=== PATIENT | female | born 1985 | race Caucasian/White ===

== ENCOUNTER → 2022-04-12 | Outpatient (CLI) | payer OTHER ==
[~2022-04-12] MED LIST: ANUS2.5C2 TOP; B12 PO; CALCIUM CITRATE PO; CIPR500T89 PO; DOCU10CA PO; DOCU5LIQ PO; FERR325T OR; IBUP80TA PO; LANOLIN CREAM TOP; MAPA500T17 PO; MAPA500T2 PO; MOM30SS PO; MULTIVIT PO; OXYC1TAB23 PO; PNV-CAP5 PO; PRENTAB74 PO; PRIL40CA OR; VITAPRTA PO; [UNRECOGNIZED DRUG - OTHER] IV
== END ==
LOC: M OUTALCOH 07:53
PROVIDERS: ATTEND Psychiatry & Neurology Psychiatry
DX: F10.10 Alcohol abuse, uncomplicated (principal)

== ENCOUNTER 2022-05-03 08:40 | Outpatient (RCR) | payer OTHER | END 2022-05-04 | LOC: M OUTALCOH 08:40 | PROVIDERS: ATTEND Psychiatry & Neurology Psychiatry | DX: F10.20 Alcohol dependence, uncomplicated (principal); Z72.0 Tobacco use ==

== ENCOUNTER → 2023-11-10 | Outpatient (CLI) | payer OTHER | LOC: M OUTALCOH 12:26 | PROVIDERS: ATTEND Psychiatry & Neurology Psychiatry | DX: F10.20 Alcohol dependence, uncomplicated (principal) ==

== ENCOUNTER 2024-11-24 16:51 | Emergency (ER) | payer OTHER ==
[~2024-11-24] VITALS: Ht 167.6 cm; Wt 82.4 kg
[~2024-11-24 16:51] MED LIST changes: +CLON-412 PO; +FOLI1TAB11 PO; +HYDR50TA70 PO; +INVE234I INJ; +LORA1TAB23 PO; +ONDA-83 PO; +OXAZ10CA3 PO; +THIA100T7 PO; +THIA100TA PO; +TRAZ-257 PO; +VITMTA PO
[2024-11-24 17:01] VITALS: BP 139/84; TEMP 98.8; O2SAT 98
== END 2024-11-24 18:09 | disposition left against medical advice (07) ==
LOC: M ED 16:51
DX: Z53.21 Procedure and treatment not carried out due to patient leaving prior to being seen by health care provider (principal)

== ENCOUNTER 2024-12-02 11:20 | Inpatient (IN) | payer OTHER ==
[~2024-12-02] VITALS: Ht 167.6 cm; Wt 79.8 kg
[2024-12-02 12:28] LABS: PLATELET COUNT, AUTOMATED 299 10^3/uL (150-450)
[2024-12-02 12:48] LABS: BARBITURATES URINE NEGATIVE (NEGATIVE); CANNABINOIDS URINE NEGATIVE (NEGATIVE); METHADONE URINE NEGATIVE (NEGATIVE); OPIATES URINE NEGATIVE (NEGATIVE); PHENCYCLIDINE URINE NEGATIVE (NEGATIVE)
[2024-12-02 12:52] LABS: AMPHETAMINES LEVEL URINE POSITIVE (NEGATIVE); BENZODIAZEPINES URINE POSITIVE (NEGATIVE); COCAINE METABOLITE URINE POSITIVE (NEGATIVE); SALICYLATE LEVEL < 3.0 MG/DL (<30)
[2024-12-02 12:56] LABS: ETHYL ALCOHOL (ETHANOL) 0.162 % (0.000-0.010)
[2024-12-02 13:09] LABS: ALT/SGPT 69 U/L (7.0-40); AST/SGOT 66 U/L (<34); CALCIUM LEVEL 9.2 MG/DL (8.5-10.1); CARBON DIOXIDE LEVEL 22 MMOL/L (20-31); CHLORIDE LEVEL 101 MMOL/L (98-107); CREATININE FOR GFR 0.67 MG/DL (0.55-1.30); GLOMERULAR FILTRATION RATE > 90.0 (>60); POTASSIUM SERUM 3.8 MMOL/L (3.5-5.1); SODIUM LEVEL 136 MMOL/L (136-145)
[2024-12-02 13:12] LABS: HCG, SERUM QUALITATIVE NEGATIVE (NEGATIVE)
[2024-12-02] MEDS ORDERED: HOME MED LIST COMPLETE! XX SCH (15:45)
[2024-12-03] MEDS ORDERED: MAALOX 30 ML SUSP *UDC PO PRN (09:15)
[2024-12-03] MEDS ORDERED: MOM 30 ML SUSPENSION UDC PO PRN (09:15)
[2024-12-03] MEDS ORDERED: ACETAMINOPHEN 325 MG TAB PO PRN (09:15)
[2024-12-03] MEDS: LORazepam 1 MG TAB PO PRN (10:20)
[2024-12-03] MEDS: NICOTINE 14 MG/24 HR TRANSDERMAL TD SCH (10:20)
[2024-12-03 12:25] VITALS: BP 108/65; TEMP 97.6; O2SAT 99
[2024-12-03] MEDS: HALOPERIDOL 5 MG TAB PO PRN (16:06)
[2024-12-03] MEDS: traZODone 50 MG TAB PO PRN (23:02)
[2024-12-04 06:35] VITALS: BP 109/64; TEMP 97; O2SAT 98
[2024-12-04] MEDS ORDERED: LORazepam 1 MG TAB PO ONE (09:50)
[2024-12-04 15:12] VITALS: BP 122/67; TEMP 97.9; O2SAT 100
[2024-12-04 17:24] LABS: GC DNA AMPLIFICATION NEGATIVE (NEGATIVE)
[2024-12-04] MEDS: CETIRIZINE 10 MG TAB PO ONE (18:36)
[2024-12-04] MEDS: PALIPERIDONE 3MG ER TAB PO SCH (20:02)
[2024-12-04] MEDS: MONTELUKAST 10 MG TAB PO SCH (20:03)
[2024-12-04] MEDS: FLUTICASONE PROPIONATE 0.05% NASAL SPRAY 16 GM NARES SCH (20:03)
[2024-12-04] MEDS: guaiFENesin ER TABLET 600 MG TAB PO SCH (20:03)
[2024-12-05 06:21] VITALS: BP 121/66; TEMP 97.3; O2SAT 98
[2024-12-05] MEDS: CETIRIZINE 10 MG TAB PO SCH (09:48)
[2024-12-05] MEDS: OLANZapine 5 MG TAB PO PRN (14:16)
[2024-12-05 16:26] VITALS: BP 110/64; TEMP 98.4; O2SAT 98
[2024-12-05] MEDS: traZODone 100 MG TAB PO PRN (20:11)
[2024-12-05] MEDS: PALIPERIDONE 6MG ER TAB PO SCH (20:12)
[2024-12-06 06:22] VITALS: BP 113/57; TEMP 97.6; O2SAT 100
[2024-12-06 15:34] VITALS: BP 133/70; TEMP 98; O2SAT 96
[2024-12-06] MEDS ORDERED: INVE234I IM (15:42)
[2024-12-06] MEDS ORDERED: FLUTISP NARES (15:42)
[2024-12-06] MEDS ORDERED: CETI10TA PO (15:42)
[2024-12-06] MEDS ORDERED: MUCI600T31 PO (15:42)
[2024-12-06] MEDS ORDERED: MONT10TA97 PO (15:42)
[2024-12-06] MEDS ORDERED: CLONI1TA PO (15:42)
[2024-12-06] MEDS ORDERED: TRAZ-257 PO (15:42)
[2024-12-06] MEDS ORDERED: PALI1TAB3 PO (15:42)
[2024-12-07 06:41] VITALS: BP 116/56; TEMP 97.6; O2SAT 98
[2024-12-07] MEDS: PALIPERIDONE PAL 234MG/1.5ML INJ (FREE PSY INPT ONLY) IM ONE (07:25)
[2024-12-07 08:32] VITALS: BP 119/60
== END 2024-12-07 10:06 | disposition home or self-care (01) | DRG 750 ==
LOC: M ED 11:20 → M ED INP 12-03 09:13 → M PSY 12-03 12:24
PROVIDERS: ADMIT Internal Medicine; ATTEND Internal Medicine
DX: F20.9 Schizophrenia, unspecified (principal); T76.11XA Adult physical abuse, suspected, initial encounter; F17.200 Nicotine dependence, unspecified, uncomplicated; F15.90 Other stimulant use, unspecified, uncomplicated; F14.90 Cocaine use, unspecified, uncomplicated; F11.90 Opioid use, unspecified, uncomplicated; S00.83XA Contusion of other part of head, initial encounter; Z88.6 Allergy status to analgesic agent; Z88.8 Allergy status to other drugs, medicaments and biological substances; Z81.8 Family history of other mental and behavioral disorders; Z81.1 Family history of alcohol abuse and dependence; Z56.0 Unemployment, unspecified; G47.00 Insomnia, unspecified; Y04.2XXA Assault by strike against or bumped into by another person, initial encounter; Z90.5 Acquired absence of kidney; Z98.84 Bariatric surgery status; Z90.49 Acquired absence of other specified parts of digestive tract

== ENCOUNTER 2025-01-05 22:56 | Inpatient (IN) | payer MEDICAID, OTHER ==
[~2025-01-05] VITALS: Ht 167.6 cm; Wt 79.7 kg
[~2025-01-05 22:56] MED LIST changes: +CETI10TA PO; +CLONI1TA PO; +FLUTISP NARES; +INVE234I IM; +MONT10TA97 PO; +MUCI600T31 PO; +PALI1TAB3 PO
[2025-01-05 23:37] LABS: BASO # 0.1 10^3/uL (0.0-0.2); BASO % 0.8 % (0.0-1.0); EOS # 0.3 10^3/uL (0.0-0.5); EOS % 3.7 % (0.0-3.0); LYMPH # 3.2 10^3/uL (1.5-5.0); LYMPH % 36.9 % (24.0-44.0); MONO # 0.6 10^3/uL (0.0-0.8); MONO % 7.4 % (2.0-8.0); NEUTROPHILS # 4.4 10^3/uL (1.5-8.5); NEUTROPHILS % 51.0 % (36.0-66.0); PLATELET COUNT, AUTOMATED 337 10^3/uL (150-450)
[2025-01-05 23:54] LABS: BARBITURATES URINE NEGATIVE (NEGATIVE); BENZODIAZEPINES URINE NEGATIVE (NEGATIVE); COCAINE METABOLITE URINE NEGATIVE (NEGATIVE); METHADONE URINE NEGATIVE (NEGATIVE); OPIATES URINE NEGATIVE (NEGATIVE); PHENCYCLIDINE URINE NEGATIVE (NEGATIVE)
[2025-01-05 23:55] LABS: CANNABINOIDS URINE NEGATIVE (NEGATIVE)
[2025-01-05 23:56] LABS: AMPHETAMINES LEVEL URINE POSITIVE (NEGATIVE)
[2025-01-05 23:58] LABS: CPK CREATINE PHOSPHOKINASE 116 U/L (34-145)
[2025-01-05 23:59] LABS: ALT/SGPT 39 U/L (7.0-40); AST/SGOT 26 U/L (<34); CALCIUM LEVEL 8.6 MG/DL (8.5-10.1); CARBON DIOXIDE LEVEL 22 MMOL/L (20-31); CHLORIDE LEVEL 110 MMOL/L (98-107); CREATININE FOR GFR 0.61 MG/DL (0.55-1.30); GLOMERULAR FILTRATION RATE > 90.0 (>60); POTASSIUM SERUM 4.2 MMOL/L (3.5-5.1); SALICYLATE LEVEL < 3.0 MG/DL (<30); SODIUM LEVEL 145 MMOL/L (136-145)
[2025-01-06 00:03] LABS: HCG, SERUM QUALITATIVE NEGATIVE (NEGATIVE)
[2025-01-06 00:38] LABS: ETHYL ALCOHOL (ETHANOL) 0.297 % (0.000-0.010)
[2025-01-06] MEDS: THIAMINE 100 MG TAB PO SCH (00:42)
[2025-01-06] MEDS: ONDANSETRON 4MG ORAL DISINTEGRATING TAB PO ONE (08:40)
[2025-01-06] MEDS: FOLIC ACID 1 MG TAB PO SCH (09:25)
[2025-01-06] MEDS: MULTIVITAMINS/MINERALS THERAP 1 TAB PO SCH (09:25)
[2025-01-06] MEDS ORDERED: GABA-1172 (09:29)
[2025-01-06] MEDS ORDERED: FLUT15.820 (10:26)
[2025-01-06] MEDS ORDERED: CETI-24 PO (10:26)
[2025-01-06] MEDS ORDERED: TRAZ1TAB12 PO (10:26)
[2025-01-06] MEDS ORDERED: MONT10TA97 PO (10:26)
[2025-01-06] MEDS ORDERED: INVE234I IM (10:26)
[2025-01-06] MEDS ORDERED: HOME MED LIST COMPLETE! XX SCH (10:30)
[2025-01-06 15:41] LABS: KETONE, URINE AUTO RFX NEGATIVE (NEGATIVE); MUCUS, URINE RFX SMALL (NEGATIVE); NITRITE, URINE AUTO RFX NEGATIVE (NEGATIVE); RBC, URINE AUTO RFX TNTC /HPF (0-3); SQUAM EPITHELIAL CELL UR AURFX 50 /HPF (0-6)
[2025-01-06 15:42] LABS: LEUKOCYTE ESTERASE UR AUTO RFX 2+ (NEGATIVE); WBC, URINE AUTO RFX TNTC /HPF (0-3)
[2025-01-06] MEDS ORDERED: NITROFURANTOIN 100 MG CAP PO ONE (16:20)
[2025-01-06] MEDS ORDERED: NITROFURANTOIN 100 MG CAP PO SCH (16:25)
[2025-01-06] MEDS: NITROFURANTOIN 100 MG CAP PO SCH (16:51)
[2025-01-06] MEDS ORDERED: MOM 30 ML SUSPENSION UDC PO PRN (19:55)
[2025-01-06] MEDS ORDERED: CETIRIZINE 10 MG TAB PO PRN (19:55)
[2025-01-06] MEDS ORDERED: ACETAMINOPHEN 325 MG TAB PO PRN (19:55)
[2025-01-06] MEDS ORDERED: MAALOX 30 ML SUSP *UDC PO PRN (19:55)
[2025-01-06] MEDS: OLANZapine 5 MG TAB PO PRN (21:39)
[2025-01-06] MEDS: MONTELUKAST 10 MG TAB PO SCH (21:39)
[2025-01-06] MEDS: traZODone 100 MG TAB PO PRN (21:39)
[2025-01-06 22:00] VITALS: BP 113/59; TEMP 97; O2SAT 97
[2025-01-07 06:00] VITALS: BP_SYST 112; BP_DIAS 70; BP_DIAS 75; TEMP 97.2
[2025-01-07] MEDS: THIAMINE 100 MG TAB PO SCH (11:22)
[2025-01-07] MEDS: FOLIC ACID 1 MG TAB PO SCH (11:22)
[2025-01-07] MEDS: MULTIVITAMINS/MINERALS THERAP 1 TAB PO SCH (11:22)
[2025-01-07] MEDS: NITROFURANTOIN 100 MG CAP PO SCH (13:59)
[2025-01-07 14:55] VITALS: BP 130/74
[2025-01-07 15:24] VITALS: BP 130/74; TEMP 97.7; O2SAT 98
[2025-01-07] MEDS: PALIPERIDONE 6MG ER TAB PO SCH (21:09)
[2025-01-07 22:00] VITALS: BP 123/72
[2025-01-08 09:25] VITALS: BP 115/82
[2025-01-08 14:54] VITALS: BP 106/56
[2025-01-08] MEDS: NICOTINE POLACRILEX 2 MG GUM PO PRN (17:55)
[2025-01-08 18:43] VITALS: BP 126/68; TEMP 98.6; O2SAT 98
[2025-01-08 21:00] VITALS: BP 120/70
[2025-01-09 06:27] VITALS: BP 97/56; TEMP 97.3; O2SAT 100
[2025-01-09] MEDS ORDERED: CLON-412 PO (08:33)
[2025-01-09] MEDS ORDERED: BENA25CA4 PO (08:33)
[2025-01-09] MEDS ORDERED: PALI1TAB3 PO (08:33)
[2025-01-09] MEDS ORDERED: QUET1TAB17 PO (08:33)
[2025-01-09] MEDS ORDERED: TRAZ-257 PO (08:33)
[2025-01-09 09:35] VITALS: BP 117/74
== END 2025-01-09 10:29 | disposition home or self-care (01) | DRG 750 ==
LOC: M ED 22:56 → M ED INP 01-06 19:55 → M PSY 01-06 21:08
PROVIDERS: ADMIT Psychiatry & Neurology Neurology; ATTEND Psychiatry & Neurology Neurology
DX: F25.0 Schizoaffective disorder, bipolar type (principal); Z91.148 Patient's other noncompliance with medication regimen for other reason; R45.851 Suicidal ideations; F10.10 Alcohol abuse, uncomplicated; F15.90 Other stimulant use, unspecified, uncomplicated; F41.9 Anxiety disorder, unspecified; Z88.8 Allergy status to other drugs, medicaments and biological substances; Z88.6 Allergy status to analgesic agent; Z79.899 Other long term (current) drug therapy

== ENCOUNTER 2025-02-09 18:15 | Inpatient (IN) | payer MEDICAID, OTHER ==
[~2025-02-09] VITALS: Ht 167.6 cm; Wt 76.6 kg
[~2025-02-09 18:15] MED LIST changes: +BENA25CA4 PO; +CETI-24 PO; +FLUT15.820; +GABA-1172; +QUET1TAB17 PO; +TRAZ1TAB12 PO
[2025-02-09 19:25] LABS: PLATELET COUNT, AUTOMATED 389 10^3/uL (150-450)
[2025-02-09 19:49] LABS: BARBITURATES URINE NEGATIVE (NEGATIVE); BENZODIAZEPINES URINE NEGATIVE (NEGATIVE); CANNABINOIDS URINE NEGATIVE (NEGATIVE); COCAINE METABOLITE URINE NEGATIVE (NEGATIVE); METHADONE URINE NEGATIVE (NEGATIVE); OPIATES URINE NEGATIVE (NEGATIVE); PHENCYCLIDINE URINE NEGATIVE (NEGATIVE)
[2025-02-09 19:50] LABS: AMPHETAMINES LEVEL URINE POSITIVE (NEGATIVE)
[2025-02-09 19:51] LABS: ETHYL ALCOHOL (ETHANOL) 0.214 % (0.000-0.010)
[2025-02-09 19:52] LABS: SALICYLATE LEVEL < 3.0 MG/DL (<30)
[2025-02-09 19:53] LABS: ALT/SGPT 20 U/L (7.0-40); AST/SGOT 15 U/L (<34); CALCIUM LEVEL 9.0 MG/DL (8.5-10.1); CARBON DIOXIDE LEVEL 21 MMOL/L (20-31); CHLORIDE LEVEL 113 MMOL/L (98-107); CREATININE FOR GFR 0.80 MG/DL (0.55-1.30); GLOMERULAR FILTRATION RATE > 90.0 (>60); POTASSIUM SERUM 3.3 MMOL/L (3.5-5.1); SODIUM LEVEL 148 MMOL/L (136-145)
[2025-02-09] MEDS: OLANZapine ORAL DISINTEGRATING TAB 5MG PO ONE (19:55)
[2025-02-09] MEDS: POTASSIUM CHLORIDE 10MEQ SR TABLET PO ONE (22:50)
[2025-02-09] MEDS ORDERED: ACETAMINOPHEN 325 MG TAB PO PRN (22:55)
[2025-02-09] MEDS ORDERED: MOM 30 ML SUSPENSION UDC PO PRN (22:55)
[2025-02-09] MEDS ORDERED: MAALOX 30 ML SUSP *UDC PO PRN (22:55)
[2025-02-09 23:52] VITALS: BP 128/81; TEMP 97.6; O2SAT 96
[2025-02-10] MEDS ORDERED: QUET1TAB17 PO (00:33)
[2025-02-10] MEDS ORDERED: PALI1TAB3 PO (00:33)
[2025-02-10] MEDS ORDERED: CLONI1TA PO (00:33)
[2025-02-10] MEDS ORDERED: TRAZ-257 PO (00:33)
[2025-02-10] MEDS ORDERED: HOME MED LIST COMPLETE! XX SCH (00:35)
[2025-02-10 06:21] VITALS: BP 116/63; TEMP 96.8; O2SAT 100
[2025-02-10 08:26] VITALS: BP 116/63
[2025-02-10] MEDS: THIAMINE 100 MG TAB PO SCH (08:31)
[2025-02-10] MEDS: MULTIVITAMINS/MINERALS THERAP 1 TAB PO SCH (08:32)
[2025-02-10] MEDS: FOLIC ACID 1 MG TAB PO SCH (08:32)
[2025-02-10 10:30] VITALS: BP 126/72
[2025-02-10] MEDS: HALOPERIDOL 5 MG TAB PO PRN (12:42)
[2025-02-10 13:25] VITALS: BP 138/92
[2025-02-10] MEDS: LORazepam 1 MG TAB PO PRN (13:37)
[2025-02-10] MEDS: PALIPERIDONE PAL 234MG/1.5ML INJ (FREE PSY INPT ONLY) IM ONE (14:02)
[2025-02-10] MEDS: traZODone 50 MG TAB PO PRN (20:33)
[2025-02-10 20:35] VITALS: BP 136/78
[2025-02-11 06:00] VITALS: BP 116/71
[2025-02-11 06:49] VITALS: BP 116/62; TEMP 96.8; O2SAT 97
[2025-02-11 06:58] VITALS: BP 116/62
[2025-02-11 11:18] VITALS: BP 119/71
[2025-02-11 14:58] VITALS: BP 135/83
[2025-02-11 16:06] VITALS: BP 135/83; TEMP 97.3; O2SAT 98
[2025-02-11] MEDS: OLANZapine ORAL DISINTEGRATING TAB 5MG PO PRN (17:53)
[2025-02-11 18:22] LABS: BASO # 0.1 10^3/uL (0.0-0.2); BASO % 0.6 % (0.0-1.0); EOS # 0.2 10^3/uL (0.0-0.5); EOS % 2.2 % (0.0-3.0); LYMPH # 2.3 10^3/uL (1.5-5.0); LYMPH % 21.0 % (24.0-44.0); MONO # 0.6 10^3/uL (0.0-0.8); MONO % 5.9 % (2.0-8.0); NEUTROPHILS # 7.6 10^3/uL (1.5-8.5); NEUTROPHILS % 69.9 % (36.0-66.0); PLATELET COUNT, AUTOMATED 420 10^3/uL (150-450)
[2025-02-11 18:51] LABS: CALCIUM LEVEL 8.5 MG/DL (8.5-10.1); CARBON DIOXIDE LEVEL 22 MMOL/L (20-31); CHLORIDE LEVEL 106 MMOL/L (98-107); CREATININE FOR GFR 0.64 MG/DL (0.55-1.30); FREE T4 1.16 NG/DL (0.89-1.76); GLOMERULAR FILTRATION RATE > 90.0 (>60); MAGNESIUM LEVEL 1.8 MG/DL (1.8-2.4); POTASSIUM SERUM 4.6 MMOL/L (3.5-5.1); SODIUM LEVEL 139 MMOL/L (136-145)
[2025-02-12 06:19] VITALS: BP 109/74
[2025-02-12 06:21] VITALS: BP_SYST 109; BP_SYST 134; BP_DIAS 69; BP_DIAS 74; TEMP 97.4; TEMP 98.1; O2SAT 97; O2SAT 98
[2025-02-12 14:05] VITALS: BP 131/88; TEMP 97.4; O2SAT 100
[2025-02-12 15:02] VITALS: BP 131/79
[2025-02-12 16:31] VITALS: BP 131/79
[2025-02-12 22:08] VITALS: BP 114/65
[2025-02-13 06:33] VITALS: BP 112/69; TEMP 97.3; O2SAT 96
[2025-02-13] MEDS ORDERED: TRAZ-252 PO (09:33)
[2025-02-13] MEDS ORDERED: OLAN5ZYD PO (09:33)
[2025-02-13] MEDS ORDERED: OLANZapine 5 MG TAB PO SCH (21:00)
== END 2025-02-13 10:18 | disposition home or self-care (01) | DRG 753 ==
LOC: M ED 18:15 → M ED INP 22:52 → M PSY 23:45
PROVIDERS: ADMIT Psychiatry & Neurology Neurology; ATTEND Psychiatry & Neurology Neurology
DX: F39 Unspecified mood [affective] disorder (principal); E87.0 Hyperosmolality and hypernatremia; R45.851 Suicidal ideations; F25.9 Schizoaffective disorder, unspecified; F10.20 Alcohol dependence, uncomplicated; F15.10 Other stimulant abuse, uncomplicated; Z88.8 Allergy status to other drugs, medicaments and biological substances; Z88.6 Allergy status to analgesic agent; Z79.899 Other long term (current) drug therapy; F17.200 Nicotine dependence, unspecified, uncomplicated; E87.6 Hypokalemia; R94.6 Abnormal results of thyroid function studies; E86.0 Dehydration